=== PATIENT | female | born 1995 | race American Indian/Alaskan Native ===

== ENCOUNTER 2021-01-02 20:05 | Emergency (ER) | payer SELFPAY ==
[2021-01-02 21:30] VITALS: BP 105/55
[2021-01-02 21:53] LABS: Basophils # (Auto) 0.1 K/mm3 (0.0-0.1); Basophils % (Auto) 0.7 % (0.0-1.8); Eosinophils # (Auto) 0.1 K/mm3 (0.0-0.4); Eosinophils % (Auto) 1.5 % (0.0-4.3); Hematocrit 36.6 % (30.3-42.9); Hemoglobin 12.8 gm/dl (10.1-14.3); Lymphocytes # (Auto) 2.3 K/mm3 (1.2-5.4); Lymphocytes % (Auto) 25.4 % (13.4-35.0); Mean Corpuscular HGB Conc 35 % (30-34); Mean Corpuscular Volume 90 fl (79-97); Monocytes # (Auto) 0.5 K/mm3 (0.0-0.8); Monocytes % (Auto) 5.9 % (0.0-7.3); Platelet Count 196 K/mm3 (140-440); Red Blood Count 4.05 M/mm3 (3.65-5.03); Red Cell Distribution Width 13.9 % (13.2-15.2)
[2021-01-02 22:16] LABS: Alanine Aminotransferase 31 units/L (7-56); Albumin 3.9 g/dL (3.9-5); Blood Urea Nitrogen 12 mg/dL (7-17); Calcium 8.9 mg/dL (8.4-10.2); Hemolysis Index 51
[2021-01-02 22:18] LABS: BUN/Creatinine Ratio 20
--- NOTE | 2021-01-02 22:24 | Emergency Department Report ---
ED Abdominal Pain HPI - General Chief Complaint: Abdominal Pain Stated Complaint: 12WEEKS PREG ABDOMINAL PAIN Time Seen by Provider: 01/02/21 21:30 Source: patient Mode of arrival: Ambulatory Limitations: No Limitations - History of Present Illness Initial Comments: Patient is a 25-year-old female presents emergency room with complaints of pelvic pain that began 3 days ago. She states that she has been having light vaginal spotting for 2 weeks, she states she told her nursery school attendant and she was advised this was likely normal. She states that she has a periumbilical hernia which she reports has been there for approximately 8 months and states it sometimes causes her discomfort. She states that she also has associated nausea and vomiting over the last few days. She states that she has had approximately 2 episodes of vomiting today. She is able to tolerate p.o. intake. She states that she had a normal bowel movement today. She states that she is 12 weeks 3 days . She states her [employer] is at [place]. She states that she has been having some mild dysuria. She denies any fever, diarrhea, heavy bleeding or passing clots, abnormal vaginal discharge. She has a past medical history of asthma. No allergies to medications. /P: 1/A: 0 - Related Data Previous Rx's Medication Instructions Recorded Last Taken Type Famotidine [Pepcid] 20 mg PO BID #30 tablet 07/04/18 Unknown Rx Mag Hydrox/Aluminum Hyd/Simeth 20 ml PO QID PRN #1 bottle 07/04/18 Unknown Rx [Maalox Advanced Suspension] Ondansetron [Zofran Odt] 4 mg PO Q8HR PRN #20 tab.rapdis 07/04/18 Unknown Rx traMADoL [Ultram 50 MG tab] 50 mg PO Q6HR PRN #20 tablet 07/04/18 Unknown Rx Acetaminophen [Tylenol] 650 mg PO Q8HR PRN #20 capsule 01/03/21 Unknown Rx Metoclopramide [Reglan] 10 mg PO Q8HR PRN #12 tab 01/03/21 Unknown Rx Allergies Allergy/AdvReac Type Severity Reaction Status Date / Time No Known Allergies Allergy Unverified 07/04/18 14:21 ED Review of Systems ROS: Stated complaint: 12WEEKS PREG ABDOMINAL PAIN Other details as noted in HPI Comment: All other systems reviewed and negative ED Past Medical Hx - Past Medical History Hx Asthma: Yes - Surgical History Past Surgical History?: No - Social History Smoking Status: Never Smoker Substance Use Type: None - Medications Home Medications: Home Medications Medication Instructions Recorded Confirmed Last Taken Type Famotidine [Pepcid] 20 mg PO BID #30 tablet 07/04/18 Unknown Rx Mag Hydrox/Aluminum Hyd/Simeth 20 ml PO QID PRN #1 bottle 07/04/18 Unknown Rx [Maalox Advanced Suspension] Ondansetron [Zofran Odt] 4 mg PO Q8HR PRN #20 tab.rapdis 07/04/18 Unknown Rx traMADoL [Ultram 50 MG tab] 50 mg PO Q6HR PRN #20 tablet 07/04/18 Unknown Rx Acetaminophen [Tylenol] 650 mg PO Q8HR PRN #20 capsule 01/03/21 Unknown Rx Metoclopramide [Reglan] 10 mg PO Q8HR PRN #12 tab 01/03/21 Unknown Rx ED Physical Exam - General Limitations: No Limitations General appearance: alert, in no apparent distress - Head Head exam: Present: atraumatic, normocephalic - Eye Eye exam: Present: normal appearance - ENT ENT exam: Present: mucous membranes moist - Respiratory Respiratory exam: Present: normal lung sounds bilaterally. Absent: respiratory distress, wheezes, rales, rhonchi, stridor, chest wall tenderness, accessory muscle use, decreased breath sounds, prolonged expiratory - Cardiovascular Cardiovascular Exam: Present: regular rate, normal rhythm, normal heart sounds. Absent: systolic murmur, diastolic murmur, rubs, gallop - GI/Abdominal GI/Abdominal exam: Present: soft, normal bowel sounds, hernia (very small easily reducible umbilical hernia). Absent: distended, tenderness, guarding, rebound, rigid - Neurological Exam Neurological exam: Present: alert, oriented X3 - Psychiatric Psychiatric exam: Present: normal affect, normal mood - Skin Skin exam: Present: warm, dry, intact ED Course Vital Signs 01/02/21 21:27 Temperature 98.2 F Pulse Rate 83 Respiratory 18 Rate Blood Pressure 105/55 O2 Sat by Pulse 100 Oximetry ED Medical Decision Making - Lab Data Result diagrams: 01/02/21 21:42 01/02/21 21:35 Lab Results 01/02/21 01/02/21 01/02/21 Range/Units 21:35 21:35 21:42 WBC 9.2 (4.5-11.0) K/mm3 RBC 4.05 (3.65-5.03) M/mm3 Hgb 12.8 (10.1-14.3) gm/dl Hct 36.6 (30.3-42.9) % MCV 90 (79-97) fl MCH 32 (28-32) pg MCHC 35 H (30-34) % RDW 13.9 (13.2-15.2) % Plt Count 196 (140-440) K/mm3 Lymph % (Auto) 25.4 (13.4-35.0) % [place] % (Auto) 5.9 (0.0-7.3) % Eos % (Auto) 1.5 (0.0-4.3) % Baso % (Auto) 0.7 (0.0-1.8) % Lymph # (Auto) 2.3 (1.2-5.4) K/mm3 [place] # (Auto) 0.5 (0.0-0.8) K/mm3 Eos # (Auto) 0.1 (0.0-0.4) K/mm3 Baso # (Auto) 0.1 (0.0-0.1) K/mm3 Seg Neutrophils % 66.5 (40.0-70.0) % Seg Neutrophils # 6.1 (1.8-7.7) K/mm3 Sodium 134 L (137-145) mmol/L Potassium 4.2 (3.6-5.0) mmol/L Chloride 101.7 (98-107) mmol/L Carbon Dioxide 23 (22-30) mmol/L Anion Gap 14 mmol/L BUN 12 (7-17) mg/dL Creatinine 0.6 (0.6-1.2) mg/dL Estimated GFR > 60 ml/min BUN/Creatinine Ratio 20 % Glucose 88 (65-100) mg/dL Calcium 8.9 (8.4-10.2) mg/dL Total Bilirubin 0.40 (0.1-1.2) mg/dL AST 32 (5-40) units/L ALT 31 (7-56) units/L Alkaline Phosphatase 54 (35-129) units/L Total Protein 7.3 (6.3-8.2) g/dL Albumin 3.9 (3.9-5) g/dL Albumin/Globulin Ratio 1.1 % HCG, Quant [id number] H (0-4) mIU/mL Urine Color (Yellow) Urine Turbidity (Clear) Urine pH (5.0-7.0) Ur Specific [place] (1.003-1.030) Urine Protein (Negative) mg/dL Urine Glucose (UA) (Negative) mg/dL Urine Ketones (Negative) mg/dL Urine Blood (Negative) Urine Nitrite (Negative) Urine Bilirubin (Negative) Urine Urobilinogen (<2.0) mg/dL Ur Leukocyte Esterase (Negative) Urine WBC (Auto) (0.0-6.0) /HPF Urine RBC (Auto) (0.0-6.0) /HPF U Epithel Cells (Auto) (0-13.0) /HPF Blood Type 01/02/21 01/02/21 Range/Units 21:42 Unknown WBC (4.5-11.0) K/mm3 RBC (3.65-5.03) M/mm3 Hgb (10.1-14.3) gm/dl Hct (30.3-42.9) % MCV (79-97) fl MCH (28-32) pg MCHC (30-34) % RDW (13.2-15.2) % Plt Count (140-440) K/mm3 Lymph % (Auto) (13.4-35.0) % [place] % (Auto) (0.0-7.3) % Eos % (Auto) (0.0-4.3) % Baso % (Auto) (0.0-1.8) % Lymph # (Auto) (1.2-5.4) K/mm3 [place] # (Auto) (0.0-0.8) K/mm3 Eos # (Auto) (0.0-0.4) K/mm3 Baso # (Auto) (0.0-0.1) K/mm3 Seg Neutrophils % (40.0-70.0) % Seg Neutrophils # (1.8-7.7) K/mm3 Sodium (137-145) mmol/L Potassium (3.6-5.0) mmol/L Chloride (98-107) mmol/L Carbon Dioxide (22-30) mmol/L Anion Gap mmol/L BUN (7-17) mg/dL Creatinine (0.6-1.2) mg/dL Estimated GFR ml/min BUN/Creatinine Ratio % Glucose (65-100) mg/dL Calcium (8.4-10.2) mg/dL Total Bilirubin (0.1-1.2) mg/dL AST (5-40) units/L ALT (7-56) units/L Alkaline Phosphatase (35-129) units/L Total Protein (6.3-8.2) g/dL Albumin (3.9-5) g/dL Albumin/Globulin Ratio % HCG, Quant (0-4) mIU/mL Urine Color Yellow (Yellow) Urine Turbidity Clear (Clear) Urine pH 6.0 (5.0-7.0) Ur Specific [place] 1.013 (1.003-1.030) Urine Protein <15 mg/dl (Negative) mg/dL Urine Glucose (UA) Neg (Negative) mg/dL Urine Ketones Neg (Negative) mg/dL Urine Blood Neg (Negative) Urine Nitrite Neg (Negative) Urine Bilirubin Neg (Negative) Urine Urobilinogen < 2.0 (<2.0) mg/dL Ur Leukocyte Esterase Neg (Negative) Urine WBC (Auto) 1.0 (0.0-6.0) /HPF Urine RBC (Auto) 1.0 (0.0-6.0) /HPF U Epithel Cells (Auto) 3.0 (0-13.0) /HPF Blood Type O POSITIVE - Radiology Data Radiology results: report reviewed Ordering Physician: MANE GUNN Date of Service: 01/02/21 Procedure(s): US OB <= 14 weeks fetus Accession Number(s): [id number] cc: MANE GUNN ULTRASOUND PELVIS INDICATION: , spotting, abd pain. TECHNIQUE: Transabdominal. Duplex Color Doppler used: Yes. COMPARISON: None available FINDINGS: Uterus: Present. Size: 7.3 x 7.8 x 8.6 cm. Appearance is heterogeneous. Endometrial complex: Intrauterine dated 11 weeks 6 days. heart tones are 170 bpm. Mass lesions: None. Additional findings: None. Ovaries not visualized. Negative for adnexal mass or fluid collection. Urinary Bladder: Normal. Free Fluid: None. Additional Findings: None. IMPRESSION: 1. Early intrauterine dated 11 weeks 6 days. 2. Heterogeneous uterus. 3. Ovaries not visualized. No adnexal mass or fluid. Signer Name: Bentley Cisneros MD Signed: 01/03/2021 12:14 AM Workstation Name: [id number] Transcribed By: KELLY Dictated By: Bentley Cisneros MD Electronically Authenticated By: Bentley Cisneros MD Signed Date/Time: 01/03/2113 DD/ TD/TT: Print - Medical Decision Making Patient is a 25-year-old female presents emergency room with complaints of pelv ic pain that began 3 days ago. She states that she has been having light vaginal spotting for 2 weeks, she states she told her nursery school attendant and she was advised this was likely normal. She states that she has a periumbilical hernia which she reports has been there for approximately 8 months and states it sometimes causes her discomfort. She states that she also has associated nausea and vomiting over the last few days. She states that she has had approximately 2 episodes of vomiting today. She is able to tolerate p.o. intake. She states that she had a normal bowel movement today. She states that she is 12 weeks 3 days . She states her [employer] is at [place]. She states that she has been having some mild dysuria. She denies any fever, diarrhea, heavy bleeding or passing clots, abnormal vaginal discharge. She has a past medical history of asthma. No allergies to medications. /P: 1/A: 0. Vitals are normal. No abdominal tenderness on exam, no guarding, no rebound, no rigidity, normal bowel sounds, [place] [id number]. UA without evidence of UTI o r dehydration. Patient is Rh+. OB ultrasound: 1. Early intrauterine dated 11 weeks 6 days. 2. Heterogeneous uterus. 3. Ovaries not visualized. No adnexal mass or fluid. Patient given p.o. medications while in the emergency department and was able to tolerate p.o. intake. Given prescription for Tylenol and Reglan. Discussed the importance of [employer] follow-up. Advised patient Please take medication as prescribed. Increase your water intake. Please practice pelvic rest. Please take a vitamin [id number]. Follow- up with your [employer]. Return to emergency room for new or worsening symptoms. Critical care attestation.: If time is entered above; I have spent that time in minutes in the direct care of this critically ill patient, excluding procedure time. ED Disposition Clinical Impression: Nausea/vomiting in Qualifiers: Weeks of gestation: 11 weeks Qualified Code(s): Z3A.11 - 11 weeks gestation of Abdominal pain during Qualifiers: Trimester: first trimester Qualified Code(s): O26.891 - Other specified related conditions, first trimester Disposition: TO HOME OR SELFCARE Is pt being admited?: No Does the pt Need Aspirin: No Condition: Stable Instructions: Morning Sickness, Abdominal Pain During , Abdominal Pain (ED) Additional Instructions: Please take medication as prescribed. Increase your water intake. Please practice pelvic rest. Please take a vitamin [id number]. Follow- up with your [employer]. Return to emergency room for new or worsening symptoms. Prescriptions: Metoclopramide [Reglan] 10 mg PO Q8HR PRN #12 tab PRN Reason: nausea/vomiting Acetaminophen [Tylenol] 650 mg PO Q8HR PRN #20 capsule PRN Reason: pain Referrals: PRIMARY CARE,MD [Primary Care Provider] - 2-3 Days your, nursery school attendant [Other] - 2-3 Days Time of Disposition: 02:16 Print Language: ANGOLAN
--- NOTE | 2021-01-03 00:18 | Ultrasound Report ---
ULTRASOUND PELVIS INDICATION: , spotting, abd pain. TECHNIQUE: Transabdominal. Duplex Color Doppler used: Yes. COMPARISON: None available FINDINGS: Uterus: Present. Size: 7.3 x 7.8 x 8.6 cm. Appearance is heterogeneous. Endometrial complex: Intrauterine dated 11 weeks 6 days. heart tones are 170 bpm. Mass lesions: None. Additional findings: None. Ovaries not visualized. Negative for adnexal mass or fluid collection. Urinary Bladder: Normal. Free Fluid: None. Additional Findings: None. IMPRESSION: 1. Early intrauterine dated 11 weeks 6 days. 2. Heterogeneous uterus. 3. Ovaries not visualized. No adnexal mass or fluid. Signer Name: Bentley Cisneros MD Signed: 01/03/2021 12:14 AM Workstation Name: [id number]
[2021-01-03] MEDS: METOCLOPRAMIDE 10 MG TAB PO ONE ×2 (00:47→00:49)
[2021-01-03] MEDS: ACETAMINOPHEN 500 MG TAB PO ONE ×2 (00:47→00:49)
[2021-01-03 01:15] LABS: Bilirubin,Urine NEG (Negative); Blood,Urine NEG (Negative); Color,Urine Yellow (Yellow); Protein,Urine <15 mg/dL mg/dL (Negative); Urobilinogen,Urine < 2.0 mg/dL (<2.0)
[2021-01-03] MEDS ORDERED: ACETAMINOPHEN 500 MG TAB PO ONE (01:30)
[2021-01-03] MEDS ORDERED: METOCLOPRAMIDE 10 MG TAB PO ONE (01:30)
== END 2021-01-03 02:28 | disposition home or self-care (01) ==
LOC: ED 20:05
DX: O21.8 Other vomiting complicating pregnancy (principal); O26.891 Other specified pregnancy related conditions, first trimester; R10.9 Unspecified abdominal pain; R10.2 Pelvic and perineal pain; Z3A.12 12 weeks gestation of pregnancy
CPT/HCPCS: 36415; 76801; 80053; 81001; 84702; 85025; 86900; 86901